=== PATIENT | male | born 1955 | race Caucasian/White ===

== ENCOUNTER 2020-01-13 05:40 | Day surgery (SDC) | payer OTHER ==
[~2020-01-13 05:40] MED LIST: COZAAR50 MG PO
[2020-01-13] MEDS ORDERED: RECTICARE30 GM TOP (13:54)
[2020-01-13] MEDS ORDERED: PERCOCET 5-3251 EACH PO (13:54)
== END 2020-01-13 20:55 | disposition home or self-care (01) ==
LOC: CIR.AMB 05:40 → ADM 12:45 → CIR.AMB 20:55
PROVIDERS: ATTEND Surgery
DX: K62.4 Stenosis of anus and rectum (principal); K59.4 Anal spasm; Z20.828 Contact with and (suspected) exposure to other viral communicable diseases